=== PATIENT | female | born 1960 | race Caucasian/White ===

== ENCOUNTER → 2016-08-18 | Outpatient (CLI) | payer OTHER ==
--- NOTE | 2016-08-18 09:32 | CT ---
EXAMINATION TYPE: CT chest wo con DATE OF EXAM: 08/18/2016 8:38 AM COMPARISON: COPD HISTORY: Patient having left sided lower chest pain with cough CT DLP: 386.1 mGycm Automated exposure control for dose reduction was used. Helical acquisition through the chest without contrast FINDINGS: There is no mediastinal, axillary, or hilar adenopathy. Aorta is not dilated. Mitral annular calcific ation is suspected. There is no evident lung mass. No endobronchial lesion, pleural or pericardial ef fusion. Scattered emphysematous changes are present especially in the upper lobes, there are parasept al and centrilobular emphysematous change. Upper abdomen is unremarkable.. IMPRESSION: EMPHYSEMA, ADDITIONAL FINDINGS ABOVE
--- NOTE | 2016-08-18 11:18 | NM ---
EXAMINATION TYPE: NM hepatobiliary w EF DATE OF EXAM: 08/18/2016 10:37 AM COMPARISON: MRI pancreas July 29, 2016 HISTORY: Unspecified abdominal pain per order. Abdominal pain with heartburn, reflux, and nausea and vomiting per patient. TECHNIQUE: After the intravenous administration of 4.53 mCi Tc 99m Mebrofenin hepatobiliary scintigra phy is performed. Immediate images post injection. FINDINGS: There is satisfactory initial accumulation of tracer by the liver. The gallbladder is visualized wit hin 10 minutes. The small bowel activity is noted within 45 minutes. At one hour 8 ounces of oral e nsure plus is given to mimic CCK and gallbladder ejection fraction is calculated at 49 %, in the norm al range. Therefore there is no scintigraphic evidence of cystic or common bile duct obstruction to suggest acute cholecystitis or gallbladder dyskinesia. IMPRESSION: Exam is within normal limits.
== END | disposition home or self-care (01) ==
LOC: RADCTMAIN 08:14
PROVIDERS: ATTEND Family Medicine
DX: J43.9 Emphysema, unspecified (principal); R10.9 Unspecified abdominal pain
CPT/HCPCS: 71250; 78226; A9537

== ENCOUNTER → 2017-02-22 | Outpatient (CLI) | payer OTHER ==
--- NOTE | 2017-02-22 21:05 | MR ---
EXAMINATION TYPE: MR knee RT wo con DATE OF EXAM: 02/22/2017 7:39 PM COMPARISON: NONE HISTORY: Right Knee Pain with Swelling and Locking TECHNIQUE: Multiplanar, multisequence imaging of the right knee is performed. FINDINGS: MEDIAL MENISCUS: Anterior and posterior horns are intact without tear. LATERAL MENISCUS: Oblique tear posterior horn lateral meniscus which extends to the inferior articula r surface. Anterior horn is intact. CRUCIATE LIGAMENTS: The anterior and posterior cruciate ligaments are intact and unremarkable. COLLATERAL LIGAMENTS: The medial collateral ligament and lateral collateral ligament complex are intact and unremarkable. EXTENSOR MECHANISM: Visualized quadriceps and patellar tendons are intact. EFFUSION: No evidence for joint effusion. POPLITEAL CYST: Large septated Enriquez's cyst measuring 10.7 cm in length and 1.8 cm in AP dimension. TRICOMPARTMENT SPACES: Mild narrowing medial tibiofemoral joint space and patellofemoral joint space. CARTILAGE: The articular cartilage is maintained without abnormal signal or full-thickness defect. BONE MARROW SIGNAL: Focal increased bone marrow signal involving the patella compatible with bone con tusions was anterior tibial plateau medially. No definite cartilaginous defect identified at this deloris e. OTHER: No additional significant abnormality is appreciated. IMPRESSION: 1. Posterior horn lateral meniscal tear 2. Large septated Enriquez's cyst. 3. Areas of the bone contusion as discussed. 4. Changes of osteoarthritis.
== END | disposition home or self-care (01) ==
LOC: RADMRIMAIN 18:50
PROVIDERS: ATTEND Nurse Practitioner Family
DX: S83.281A Other tear of lateral meniscus, current injury, right knee, initial encounter (principal); M17.11 Unilateral primary osteoarthritis, right knee; M71.21 Synovial cyst of popliteal space [Baker], right knee

== ENCOUNTER 2017-08-08 10:09 | Emergency (ER) | payer OTHER ==
[2017-08-08] MEDS ORDERED: IPRATROPIUM-ALBUTEROL 3 ML NEB INHALATION STA (10:30)
[2017-08-08] MEDS ORDERED: RX INFO: IV CONTRAST WAS GIVEN 1 EACH MISC MISCELLANE PRN (10:30)
--- NOTE | 2017-08-08 10:32 | ED ---
General Adult HPI - General Chief complaint: Shortness of Breath Stated complaint: Coughing up blood Time Seen by Provider: 08/08/17 10:25 Source: patient, family, RN notes reviewed Mode of arrival: wheelchair Limitations: no limitations - History of Present Illness Initial comments: Patient is a pleasant 57-year-old female presenting to the emergency department complaining of hemoptysis. Onset was this morning. Patient states only mild shortness of breath. Patient does attribute this to her chronic COPD. No chest pain. No fevers. Patient has not been sick recently. No history of similar symptoms previously. - Related Data Home Medications Medication Instructions Recorded Confirmed Albuterol Inhaler [Ventolin Hfa 2 puff INHALATION RT-Q6H PRN 09/06/15 08/08/17 Inhaler] oxyCODONE-APAP 10-325MG [Percocet 1 tab PO TID PRN 09/06/15 08/08/17 10-325 mg] ALPRAZolam [Xanax] 1 mg PO BID PRN 08/08/17 08/08/17 Tiotropium 18 Mcg/Puff [Spiriva] 1 cap INHALATION RT-DAILY 08/08/17 08/08/17 Vitamin E (Dl,Tocopheryl Acet) 400 unit PO DAILY 08/08/17 08/08/17 [Vitamin E] Previous Rx's Medication Instructions Recorded Dicyclomine [Bentyl] 10 mg PO TID PRN #15 capsule 06/22/16 Azithromycin [Zithromax Z-pack] 250 mg PO DIRECTED #6 tab 08/08/17 predniSONE 20 mg PO BID #10 tab 08/08/17 Allergies Allergy/AdvReac Type Severity Reaction Status Date / Time No Known Allergies Allergy Verified 08/08/17 11:24 Review of Systems ROS Statement: Those systems with pertinent positive or pertinent negative responses have been documented in the HPI. ROS Other: All systems not noted in ROS Statement are negative. Constitutional: Denies: fever Eyes: Denies: eye pain ENT: Denies: ear pain Respiratory: Reports: dyspnea, hemoptysis Cardiovascular: Denies: chest pain Endocrine: Denies: fatigue Gastrointestinal: Denies: nausea, vomiting Genitourinary: Denies: dysuria Musculoskeletal: Denies: back pain Skin: Denies: rash Neurological: Denies: weakness Past Medical History Past Medical History: COPD, GI Bleed Additional Past Medical History / Comment(s): Pancreatitis History of Any Multi-Drug Resistant Organisms: None Reported Past Surgical History: Back Surgery, Heart Catheterization, Orthopedic Surgery Additional Past Surgical History / Comment(s): Pt has had lower back surgery and 3 cervial spine surgeries. She has had FNA of thyroid with nodulse removed- benign. she had a colonoscopy a few years ago-normal. She had a cardiac cath without need for treatment. Past Anesthesia/Blood Transfusion Reactions: No Reported Reaction Past Psychological History: Anxiety Smoking Status: Current every day smoker Past Alcohol Use History: None Reported Past Drug Use History: Marijuana - Past Family History Father Family Medical History: Cancer, Seizure Disorder Additional Family Medical History / Comment(s): Father of renal cancer at age 62 yrs. Mother Family Medical History: Respiratory Disorder Additional Family Medical History / Comment(s): Mother of lung disease at age 68yrs. General Exam Limitations: no limitations General appearance: alert, in no apparent distress Head exam: Present: atraumatic Eye exam: Present: normal appearance, PERRL ENT exam: Present: normal oropharynx Neck exam: Present: normal inspection Respiratory exam: Present: normal lung sounds bilaterally. Absent: respiratory distress, wheezes Cardiovascular Exam: Present: regular rate, normal rhythm GI/Abdominal exam: Present: soft. Absent: tenderness Extremities exam: Present: normal inspection. Absent: pedal edema, calf tenderness Back exam: Present: normal inspection Neurological exam: Present: alert Psychiatric exam: Present: normal affect, normal mood Skin exam: Present: normal color Course Vital Signs 08/08/17 08/08/17 08/08/17 10:20 10:40 10:53 Temperature 97.6 F Pulse Rate 87 67 67 Respiratory 18 Rate Blood Pressure 138/66 O2 Sat by Pulse 97 Oximetry 08/08/17 11:32 Temperature Pulse Rate 76 Respiratory 18 Rate Blood Pressure 116/59 O2 Sat by Pulse 98 Oximetry EKG Findings - EKG Comments: EKG Findings:: normal sinus rhythm 75. ME 172. QRS 92. QT 394. QTC 439. Normal axis. Inferior Q waves. Septal Q waves. Medical Decision Making - Medical Decision Making patient reexamined and significantly improved. No dyspnea. Patient states hemoptysis has essentially resolved. Case was discussed in detail with Dr. Chris who will follow-up this patient and recommend she calls Wednesday. Patient updated and is comfortable with discharge. Patient is advised to return if symptoms return. Patient will be prescribed antibiotics and steroids as recommended by Dr. Chris - Lab Data Result diagrams: 08/08/17 10:37 08/08/17 10:37 Lab Results 08/08/17 08/08/17 08/08/17 Range/Units 10:37 10:37 10:37 WBC 5.7 (3.8-10.6) k/uL RBC 4.64 (3.80-5.40) m/uL Hgb 14.3 (11.4-16.0) gm/dL Hct 45.7 (34.0-46.0) % MCV 98.6 (80.0-100.0) fL MCH 30.8 (25.0-35.0) pg MCHC 31.2 (31.0-37.0) g/dL RDW 14.5 (11.5-15.5) % Plt Count 242 (150-450) k/uL Neutrophils % 62 % Lymphocytes % 29 % Monocytes % 5 % Eosinophils % 1 % Basophils % 1 % Neutrophils # 3.5 (1.3-7.7) k/uL Lymphocytes # 1.7 (1.0-4.8) k/uL Monocytes # 0.3 (0-1.0) k/uL Eosinophils # 0.1 (0-0.7) k/uL Basophils # 0.1 (0-0.2) k/uL PT 10.0 (9.0-12.0) sec INR 1.0 (<1.2) APTT 24.1 (22.0-30.0) sec Sodium 142 (137-145) mmol/L Potassium 3.7 (3.5-5.1) mmol/L Chloride 108 H (98-107) mmol/L Carbon Dioxide 26 (22-30) mmol/L Anion Gap 8 mmol/L BUN 11 (7-17) mg/dL Creatinine 0.70 (0.52-1.04) mg/dL Est GFR (MDRD) Af Amer >60 (>60 ml/min/1.73 sqM) Est GFR (MDRD) Non-Af >60 (>60 ml/min/1.73 sqM) Glucose 98 (74-99) mg/dL Calcium 9.1 (8.4-10.2) mg/dL Total Bilirubin 0.3 (0.2-1.3) mg/dL AST 16 (14-36) U/L ALT 30 (9-52) U/L Alkaline Phosphatase 80 (38-126) U/L Total Protein 6.7 (6.3-8.2) g/dL Albumin 3.8 (3.5-5.0) g/dL - Radiology Data Radiology results: image reviewed (computed tomography scan of the chest shows no pulmonary embolism. Emphysema and mild pulmonary fibrosis.) Disposition Clinical Impression: Hemoptysis Disposition: HOME SELF-CARE Condition: Stable Instructions: Hemoptysis (ED) Additional Instructions: please follow-up with Dr. Chris or one of his partners in the next day or 2, call Wednesday.return for coughing up blood, difficulty breathing, fevers, worsening symptoms or other concerns. Prescriptions: Azithromycin [Zithromax Z-pack] 250 mg PO DIRECTED #6 tab predniSONE 20 mg PO BID #10 tab Referrals: Garrick Walker MD [Primary Care Provider] - 1-2 days Time of Disposition: 11:58
[2017-08-08 10:50] LABS: Basophils # (A) 0.1 k/uL (0-0.2); Basophils % (A) 1 %; Eosinophils # (A) 0.1 k/uL (0-0.7); Eosinophils % (A) 1 %; HCT 45.7 % (34.0-46.0); HGB 14.3 gm/dL (11.4-16.0); Lymphocytes # (A) 1.7 k/uL (1.0-4.8); Lymphocytes % (A) 29 %; MCH 30.8 pg (25.0-35.0); MCHC 31.2 g/dL (31.0-37.0); MCV 98.6 fL (80.0-100.0); Mean Platelet Volume 8.9; Monocytes # (A) 0.3 k/uL (0-1.0); Monocytes % (A) 5 %; Neutrophils # (A) 3.5 k/uL (1.3-7.7); Neutrophils % (A) 62 %; Platelet Count 242 k/uL (150-450); RBC 4.64 m/uL (3.80-5.40); RDW 14.5 % (11.5-15.5); WBC 5.7 k/uL (3.8-10.6)
[2017-08-08 10:58] LABS: Partial Thromboplastin Time 24.1 sec (22.0-30.0)
[2017-08-08 10:59] LABS: ALT 30 U/L (9-52); AST 16 U/L (14-36); Albumin 3.8 g/dL (3.5-5.0); Alkaline Phosphatase 80 U/L (38-126); Anion Gap 8 mmol/L; Blood Urea Nitrogen 11 mg/dL (7-17); Calcium 9.1 mg/dL (8.4-10.2); Carbon Dioxide 26 mmol/L (22-30); Chloride 108 mmol/L (98-107); Glucose 98 mg/dL (74-99); Potassium 3.7 mmol/L (3.5-5.1); Sodium 142 mmol/L (137-145); Total Bilirubin 0.3 mg/dL (0.2-1.3); Total Protein 6.7 g/dL (6.3-8.2)
--- NOTE | 2017-08-08 11:37 | CT ---
EXAMINATION TYPE: CT angio chest DATE OF EXAM: 08/08/2017 11:20 AM COMPARISON: NONE HISTORY: Coughing up blood CT DLP: 371.5 mGycm Automated exposure control for dose reduction was used. CONTRAST: CTA scan of the thorax is performed with IV Contrast, patient injected with 100 mL of Omnipaque 350, pulmonary embolism protocol. There are 3-D post processed images.. FINDINGS: There is some bullous emphysema in both lungs. There is no mediastinal adenopathy. There is no eviden ce of aortic aneurysm or dissection. There are no hilar masses. I see no filling defects in the pulmo nary arteries. Heart size is normal. There is no pericardial effusion. There is no pleural effusion. There is slight coarsening of interstitial pulmonary markings. The bony thorax is intact. CONCLUSION: No evidence of pulmonary embolism. Emphysema and pulmonary mild fibrosis.
[2017-08-08 12:09] VITALS: BP 130/68; PULSE 75; RESP 16
[2017-08-08 12:25] VITALS: TEMP 97.3
== END 2017-08-08 12:12 | disposition home or self-care (01) ==
LOC: EC 10:09
DX: R04.2 Hemoptysis (principal); J44.9 Chronic obstructive pulmonary disease, unspecified; F17.200 Nicotine dependence, unspecified, uncomplicated; Z79.899 Other long term (current) drug therapy
CPT/HCPCS: 36415; 94640; 93005; 80053; 85025; 85610; 85730; 71275; 99285; Q9967

== ENCOUNTER → 2021-02-10 | Outpatient (CLI) | payer OTHER | END | disposition home or self-care (01) ==